=== PATIENT | male | born 1965 ===

== ENCOUNTER 2018-05-18 13:36 | Emergency (ER) | payer OTHER ==
[2018-05-18 14:17] VITALS: BP 132/84
--- NOTE | 2018-05-18 14:58 | UC ---
Truncal Trauma HPI - HPI Summary HPI Summary: 52-year-old male comes in with a chief complaint of left-sided rib pain. He was playing flag football and as he landed on the ground somebody struck him in his left lower lateral ribs with their knee. He had pain right away. Pain is worse with taking a deep breath or pushing on the area. He is not short of breath at rest. Denies any abdominal pain. - History Of Current Complaint Chief Complaint: UCBackPain Stated Complaint: BACK INJURY Time Seen by Provider: 05/18/18 14:23 Pain Intensity: 3 - Allergies/Home Medications Allergies/Adverse Reactions: Allergies Allergy/AdvReac Type Severity Reaction Status Date / Time No Known Allergies Allergy Verified 05/18/18 14:17 PMH/Surg Hx/FS Hx/Imm Hx Previously Healthy: Yes - Surgical History Surgical History: Yes Surgery Procedure, Year, and Place: knee, ankle - Family History Known Family History: Positive: Non-Contributory - Social History Alcohol Use: Occasionally Substance Use Type: None Smoking Status (MU): Never Smoked Tobacco Review of Systems All Other Systems Reviewed And Are Negative: Yes Constitutional: Positive: Negative Skin: Positive: Negative Eyes: Positive: Negative ENT: Positive: Negative Respiratory: Positive: Other - SEE HPI Cardiovascular: Positive: Chest Pain - SEE HPI Gastrointestinal: Positive: Negative. Negative: Abdominal Pain, Vomiting, Nausea Genitourinary: Negative: Hematuria Motor: Positive: Negative Neurovascular: Positive: Negative Musculoskeletal: Positive: Negative Neurological: Positive: Negative Psychological: Positive: Negative Is Patient Immunocompromised?: No Physical Exam Triage Information Reviewed: Yes Appearance: Well-Appearing, Well-Nourished, Pain Distress - MILD WITH MOVEMENT, DEEP INSPIRATION Vital Signs: Initial Vital Signs Temp 99.4 F 05/18/18 14:13 Pulse 73 05/18/18 14:13 Resp 18 05/18/18 14:13 BP 132/84 05/18/18 14:13 Pulse Ox 99 05/18/18 14:13 Vital Signs Reviewed: Yes Eye Exam: Normal Eyes: Positive: Conjunctiva Clear Neck exam: Normal Neck: Positive: Supple Respiratory: Positive: Lungs clear, Normal breath sounds, No respiratory distress, Other: - Patient is tender to palpation left lateral lower ribs Cardiovascular Exam: Normal Cardiovascular: Positive: RRR Abdomen Description: Positive: Nontender, Soft, Other:. Negative: CVA Tenderness (R), CVA Tenderness (L), Guarding - Patient is tender to palpation over the ribs but not in the abdomen. Left upper quadrant is nontender. Bowel Sounds: Positive: Present Musculoskeletal Exam: Normal Musculoskeletal: Positive: Strength Intact, ROM Intact Neurological Exam: Normal Neurological: Positive: Alert, Muscle Tone Normal Psychological Exam: Normal Psychological: Positive: Age Appropriate Behavior Skin Exam: Normal Truncal Trauma Course/Dx - Course Course Of Treatment: Order Information: RIBS LT UNI W/PA CH MIN 3 VWS. Accession Number: [id number]. CPT: 67388. HISTORY: PAIN S/P INJURY. COMPARISONS: None. VIEWS: 7 , Frontal view of the chest with frontal and oblique views of the left. hemithorax. FINDINGS: There are minimally displaced fractures of the left 10th and 11th ribs. There is. no appreciable pneumothorax. IMPRESSION: LEFT 10TH AND 11TH RIBS FRACTURES, WITHOUT APPRECIABLE PNEUMOTHORAX. . <Electronically signed by Ashok Mondragon MD in [facility]> 05/18/18 1450. The urine had a trace of blood in it. It is not visible to the naked eye. I discussed the x-ray reports and the urine results with the patient. Abdomen is soft and nontender. We discussed the possibility of kidney and splenic injuries. At this time clinically he does not have splenic or renal injury. We discussed if he sees any blood in his urine or if he does not feel well he feels short of breath. He feels lightheaded or has problems with his bowels either vomiting or any problems with stool he is to get reevaluated right away in the nearest emergency department. - Differential Dx/Diagnosis Provider Diagnoses: LEFT 10TH AND 11TH RIB FRACTURES Discharge - Sign-Out/Discharge Documenting (check all that apply): Patient Departure All imaging exams completed and their final reports reviewed: Yes - Discharge Plan Condition: Stable Disposition: HOME Prescriptions: HYDROcodone/ACETAMIN 5-325 MG* [[place] 5-325 TAB*] 1 tab PO Q4H PRN #20 tab MDD 6 PRN Reason: Pain Patient Education Materials: Rib Fracture (ED) Referrals: [facility] [Outside] Additional Instructions: FOLLOW UP WITH YOUR DOCTOR. GO TO THE EMERGENCY DEPARTMENT FOR ANY WORSENING OF YOUR CONDITION; PAIN, SHORTNESS OF BREATH, VOMITING, DIFFICULTY WITH BOWELS, YOU FEEL LIKE PASSING OUT OR QUESTIONS OR CONCERNS. USE THE INCENTIVE SPIROMETER EVERY 4 HOURS WHILE AWAKE OR MORE FREQUENTLY TO HELP AVOID RESPIRATORY INFECTION. - Billing Disposition and Condition Condition: STABLE Disposition: Home
== END 2018-05-18 15:45 | disposition home or self-care (01) ==
LOC: UCEAST 13:36
DX: S22.42XA Multiple fractures of ribs, left side, initial encounter for closed fracture (principal); W19.XXXA Unspecified fall, initial encounter; Y93.61 Activity, american tackle football; Y92.9 Unspecified place or not applicable; R07.81 Pleurodynia
CPT/HCPCS: 81003; 99202; G0463